=== PATIENT | male | born 1985 | race Caucasian/White ===

== ENCOUNTER 2017-10-22 17:24 | Emergency (ER) | payer OTHER ==
[~2017-10-22 17:24] MED LIST changes: -AMPH25CA9 PO; -DIPH-740 PO; -HYDR-4309 PO
[2017-10-22] MEDS ORDERED: DIPHTH/TETANUS/ACEL. PERTUSSIS IM ONLY ONE (17:30)
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
[2017-10-22] MEDS ORDERED: AMPH25CA9 PO (18:16)
[2017-10-22] MEDS ORDERED: DIPH-740 PO (18:16)
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
[2017-10-22 19:00] VITALS: BP 131/85
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
[2017-10-22] MEDS ORDERED: HYDR-4309 PO (19:36)
[2017-10-22] MEDS ORDERED: ACET/HYDROC 5/325MG TH ER ONLY 2 TAB/BOTTLE PO ONE (19:40)
== END 2017-10-22 20:02 | disposition home or self-care (01) ==
LOC: ER 17:33
DX: S42.114A Nondisplaced fracture of body of scapula, right shoulder, initial encounter for closed fracture (principal); S42.034A Nondisplaced fracture of lateral end of right clavicle, initial encounter for closed fracture; S00.81XA Abrasion of other part of head, initial encounter; S00.03XA Contusion of scalp, initial encounter; S09.90XA Unspecified injury of head, initial encounter; V29.88XA Motorcycle rider (driver) (passenger) injured in other specified transport accidents, initial encounter
CPT/HCPCS: 70450; 71046; 73030; 90471; 90715; 99285; A4565

== ENCOUNTER → 2017-10-22 | Outpatient (CLI) | payer OTHER ==
[~2017-10-22] MED LIST: ACET-3017 PO; AMPH25CA9 PO; DIPH-740 PO; HYDR-4309 PO; IBU800 PO; LOR5 PO; PENI-24 PO; SERT-173 PO; TRAZ50 PO
== END ==
LOC: AMB 17:10
PROVIDERS: ATTEND Nurse Practitioner
DX: S01.01XA Laceration without foreign body of scalp, initial encounter (principal); M79.621 Pain in right upper arm; M79.661 Pain in right lower leg; S06.9X9A Unspecified intracranial injury with loss of consciousness of unspecified duration, initial encounter; V28.4XXA Motorcycle driver injured in noncollision transport accident in traffic accident, initial encounter; Y92.410 Unspecified street and highway as the place of occurrence of the external cause
CPT/HCPCS: A0425; A0429